=== PATIENT | female | born 1965 | race Asian ===

== ENCOUNTER → 2016-10-23 | Outpatient (CLI) | payer OTHER ==
[~2016-10-23] MED LIST: CETI10TA24 PO; NORE1TAB11 PO
== END ==
LOC: STAR 11:13
PROVIDERS: ATTEND Orthopaedic Surgery
DX: Z02.9 Encounter for administrative examinations, unspecified (principal)

== ENCOUNTER 2016-10-27 06:12 | Day surgery (SDC) | payer OTHER ==
[~2016-10-27] VITALS: Ht 157.5 cm; Wt 60.0 kg
[~2016-10-27 06:12] MED LIST changes: +BUPIVACAINE/PF 0.5% ONE; +LIDOCAINE/PF 1.5%-EPI 1:200K, 30ML ONE
[2016-10-27 06:55] VITALS: BP 121/80
[2016-10-27] MEDS ORDERED: LACTATED RINGERS 1,000 ML IV SCH (07:15)
[2016-10-27] MEDS ORDERED: MIDAZOLAM 1 MG/ML, 2ML ONE (07:16)
[2016-10-27] MEDS ORDERED: FENTANYL PF 250 MCG/5ML ONE (07:16)
[2016-10-27] MEDS ORDERED: BUPIVACAINE/PF 0.5% INFIL ONE (07:24)
[2016-10-27] MEDS ORDERED: SCOPOLAMINE PATCH, 1.5MG PATCH.TD72 TD ONE ×3 (07:26→07:30)
[2016-10-27] MEDS ORDERED: ALBUTEROL SULFATE 2.5 MG/3 ML NPPB PRN (07:30)
[2016-10-27] MEDS ORDERED: HYDROmorphone 1 MG/ML, 1ML IV PRN (07:30)
[2016-10-27] MEDS ORDERED: OXYcodone 5 MG/5 ML ORAL.SOL UDC PO PRN (07:30)
[2016-10-27] MEDS ORDERED: hydrALAzine 20 MG/ML, 1ML IV PRN (07:30)
[2016-10-27] MEDS ORDERED: MEPERIDINE/PF 25MG/0.5ML IVPush PRN (07:30)
[2016-10-27] MEDS ORDERED: FENTANYL PF 100 MCG/2ML IV PRN (07:30)
[2016-10-27] MEDS ORDERED: ONDANSETRON 2MG/ML, 2ML IVPush PRN (07:30)
[2016-10-27] MEDS ORDERED: METOPROLOL 1 MG/ML, 5ML IV PRN (07:30)
[2016-10-27] MEDS ORDERED: EPHEDRINE 50 MG/ML, 1ML IVPush PRN (07:30)
[2016-10-27] MEDS ORDERED: ACETAMINOPHEN 325 MG TABLET PO PRN (07:30)
[2016-10-27] MEDS ORDERED: LABETALOL 5MG/ML, 20ML IV PRN (07:30)
[2016-10-27 07:35] LABS: HCG UR OBC PASS
[2016-10-27] MEDS ORDERED: CEFAZOLIN 1,000 MG ONE (08:15)
[2016-10-27] MEDS ORDERED: KETOROLAC 30 MG/1 ML ONE (08:15)
[2016-10-27] MEDS ORDERED: DEXAMETHASONE 4 MG/ML, 1ML ONE (08:15)
[2016-10-27] MEDS ORDERED: GLYCOPYRROLATE 0.2MG/1ML ONE (08:15)
[2016-10-27] MEDS ORDERED: ROCURONIUM 10 MG/ML ONE (08:15)
[2016-10-27] MEDS ORDERED: NEOSTIGMINE 1 MG/ML, 10ML ONE (08:15)
[2016-10-27] MEDS ORDERED: PROPOFOL 10 MG/ML, 20ML ONE (08:15)
[2016-10-27] MEDS ORDERED: ONDANSETRON 2MG/ML, 2ML ONE (08:15)
[2016-10-27] MEDS ORDERED: CETIRIZINE 10 MG TABLET PO SCH (09:00)
[2016-10-27] MEDS ORDERED: ONDANSETRON ODT 4 MG PO ONE (13:00)
== END 2016-10-27 13:50 ==
LOC: OUT 06:12
PROVIDERS: ATTEND Orthopaedic Surgery
DX: S43.432A Superior glenoid labrum lesion of left shoulder, initial encounter (principal); M75.112 Incomplete rotator cuff tear or rupture of left shoulder, not specified as traumatic; M19.012 Primary osteoarthritis, left shoulder; M75.42 Impingement syndrome of left shoulder; M65.812 Other synovitis and tenosynovitis, left shoulder; X58.XXXA Exposure to other specified factors, initial encounter; Y93.9 Activity, unspecified; Y92.9 Unspecified place or not applicable; Y99.9 Unspecified external cause status; G43.909 Migraine, unspecified, not intractable, without status migrainosus
CPT/HCPCS: 29823; 29826; 81025; J0690; J1100; J1885; J2250; J2405; J2704; J2710; J3010; J3490; J7120; Q0162

== ENCOUNTER 2016-11-01 04:42 | Emergency (ER) | payer OTHER ==
[~2016-11-01] VITALS: Ht 157.5 cm; Wt 56.9 kg
[~2016-11-01 04:42] MED LIST changes: -BUPIVACAINE/PF 0.5% ONE; -LIDOCAINE/PF 1.5%-EPI 1:200K, 30ML ONE
[2016-11-01] MEDS ORDERED: HYDR-3138 PO (05:15)
[2016-11-01] MEDS ORDERED: ONDA4TAB10 PO (05:15)
[2016-11-01] MEDS ORDERED: METOCLOPRAMIDE 5 MG/ML, 2ML ONE (05:18)
[2016-11-01] MEDS ORDERED: MORPHINE SULFATE 4 MG/ML, 1ML ONE (05:18)
[2016-11-01] MEDS ORDERED: FAMOTIDINE 20 MG/2 ML ONE (05:18)
[2016-11-01] MEDS ORDERED: METOCLOPRAMIDE 5 MG/ML, 2ML IVPush ONE (05:30)
[2016-11-01] MEDS ORDERED: SODIUM CHLORIDE 0.9% 1,000ML IVBOLUS ONE (05:30)
[2016-11-01] MEDS ORDERED: MORPHINE SULFATE 4 MG/ML, 1ML IVPush PRN (05:30)
[2016-11-01] MEDS ORDERED: FAMOTIDINE 20 MG/2 ML IVP ONE (05:30)
[2016-11-01] MEDS ORDERED: SODIUM CHLORIDE FLUSH 10ML SYR IVF ONE (05:30)
[2016-11-01 05:48] LABS: BLOOD UREA NITROGEN 17 mg/dL (7-18)
[2016-11-01 05:53] LABS: ASPARTATE AMINO TRANSFERASE 33 U/L (15-37)
[2016-11-01] MEDS ORDERED: KETOROLAC 30 MG/1 ML ONE (07:26)
[2016-11-01] MEDS ORDERED: KETOROLAC 30 MG/1 ML IVPush ONE (07:30)
[2016-11-01 07:53] VITALS: BP 128/68
== END 2016-11-01 07:55 | disposition home or self-care (01) ==
LOC: ED 05:51
DX: R11.2 Nausea with vomiting, unspecified (principal); Z96.612 Presence of left artificial shoulder joint
CPT/HCPCS: 36415; 80053; 83690; 84703; 85025; 96361; 96374; 96375; 99284; J1885; J2765; J7030; S0028

== ENCOUNTER → 2018-02-11 | Outpatient (CLI) | payer OTHER ==
[~2018-02-11] MED LIST changes: +HYDR-3237 PO; +ONDA4TAB10 PO
== END | disposition home or self-care (01) ==
LOC: CFH 07:21
PROVIDERS: ATTEND Obstetrics & Gynecology
DX: Z12.31 Encounter for screening mammogram for malignant neoplasm of breast (principal)
CPT/HCPCS: 77067

== ENCOUNTER → 2020-03-05 | Outpatient (CLI) | payer OTHER ==
[~2020-03-05] MED LIST changes: -CETI10TA24 PO; +CETI10TA76 PO
== END | disposition home or self-care (01) ==
LOC: CFH 12:41
PROVIDERS: ATTEND Obstetrics & Gynecology
DX: Z12.31 Encounter for screening mammogram for malignant neoplasm of breast (principal)
CPT/HCPCS: 77063; 77067